=== PATIENT | female | born 1985 | race Caucasian/White ===

== ENCOUNTER 2016-02-29 12:56 | Emergency (ER) | payer MEDICAID | END 2016-02-29 15:14 | disposition home or self-care (01) | LOC: ER 12:56 | DX: H66.93 Otitis media, unspecified, bilateral (principal) | CPT/HCPCS: 87880 ==

== ENCOUNTER 2016-03-11 13:50 | Emergency (ER) | payer MEDICAID | END 2016-03-11 20:58 | disposition home or self-care (01) | LOC: ER 13:50 | DX: R00.2 Palpitations (principal); R03.0 Elevated blood-pressure reading, without diagnosis of hypertension | CPT/HCPCS: 36415; 80053; 81003; 84439; 84443; 84703; 85025; 93005 ==